=== PATIENT | female | born 1990 | race Caucasian/White ===

== ENCOUNTER → 2020-01-15 14:07 | Outpatient (BNVA) | payer MEDICAID, SELFPAY | PROVIDERS: Family Provider Internal Medicine; PCP Internal Medicine; Visit Provider Obstetrics & Gynecology | DX: Z32.01 Encounter for pregnancy test, result positive (principal) | CPT/HCPCS: 81025 ==

== ENCOUNTER → 2020-01-31 10:09 | Outpatient (BNVA) | payer MEDICAID, SELFPAY | PROVIDERS: Family Provider Internal Medicine; PCP Internal Medicine; Visit Provider Obstetrics & Gynecology | DX: O99.210 Obesity complicating pregnancy, unspecified trimester (principal) | CPT/HCPCS: 80053; 80307; 81000; 82950; 83036; 84443; 85027; 86592; 86762; 86803; 86850; 86900; 87340; 87806 ==

== ENCOUNTER → 2020-02-02 10:14 | Outpatient (BNVA) | payer MEDICAID, SELFPAY | PROVIDERS: Family Provider Internal Medicine; PCP Internal Medicine; Visit Provider Obstetrics & Gynecology | DX: R79.89 Other specified abnormal findings of blood chemistry (principal) | CPT/HCPCS: 84439; 84481 ==

== ENCOUNTER → 2020-02-06 08:34 | Outpatient (BNVA) | payer MEDICAID, SELFPAY | PROVIDERS: Family Provider Internal Medicine; PCP Internal Medicine; Visit Provider Obstetrics & Gynecology | DX: O99.211 Obesity complicating pregnancy, first trimester (principal); R73.09 Other abnormal glucose; O99.011 Anemia complicating pregnancy, first trimester; D64.9 Anemia, unspecified; Z3A.08 8 weeks gestation of pregnancy | CPT/HCPCS: 82607; 82746; 82951; 82952; 83550 ==

== ENCOUNTER → 2020-02-27 08:47 | Outpatient (BNVA) | payer MEDICAID, SELFPAY | PROVIDERS: Family Provider Internal Medicine; PCP Internal Medicine; Visit Provider Obstetrics & Gynecology | DX: R82.90 Unspecified abnormal findings in urine (principal); R10.9 Unspecified abdominal pain | CPT/HCPCS: 80053 ==

== ENCOUNTER → 2020-03-05 08:27 | Outpatient (BNVA) | payer MEDICAID, SELFPAY | PROVIDERS: PCP Internal Medicine; Visit Provider Obstetrics & Gynecology | DX: O09.90 Supervision of high risk pregnancy, unspecified, unspecified trimester (principal) | CPT/HCPCS: 81000; 87491; 87591 ==

== ENCOUNTER 2020-03-11 18:57 | Emergency (ER) | payer MEDICAID, SELFPAY ==
[2020-03-11] VITALS (9 sets, daily range): BP systolic 107–129; BP diastolic 66–83; PULSE 79–110; RESP 16–20; TEMP 36.3; O2SAT 95–100; BMI 38.7
--- NOTE | 2020-03-11 19:31 | US_ITS ---
WS: [id number] TRANSABDOMINAL FIRST TRIMESTER ULTRASOUND REASON FOR EXAM: first trimester bleeding : 4 PARA: 3 COMPARISON: None available. FINDINGS: Ill-defined echogenic material is seen in the uterine cavity and within the endocervical canal. No pelvic mass or free pelvic fluid. US/US OB <= 14 weeks fetus [id number] IMPRESSION: No viable intrauterine identified. No pelvic mass identified. Findings seen within the uterus and endocervical canal likely represent clot. T his may represent missed AB or AB in progress.
[2020-03-11] MEDS: fentaNYL 50 mcg/mL INJ 2mL 100 MCG IVP (19:47)
[2020-03-11] MEDS: ondansetron 2 mg/ML SDV 2 mL 4 MG IVP (19:47)
[2020-03-11 20:17] LABS: INR 0.94 (0.8-1.2); Partial Thromboplastin Time 25.7 SECONDS (23.9-36.7)
[2020-03-11] MEDS: HYDROmorphone 1 mg/mL INJ 1 mL IVP ×2 (20:20→22:17)
[2020-03-11 20:44] LABS: Basophils # 0.1 10^3/uL (0.0-0.1); Basophils % 0.6 %; Eosinophils # 0.2 10^3/uL (0.0-0.8); Eosinophils % 1.9 %; Hematocrit 35.1 % (37.0-47.0); Lymphocytes # 2.1 10^3/uL (0.8-4.8); Lymphocytes % 21.6 %; Mean Corpuscular HGB Conc 28.5 g/dL (30.0-36.0); Mean Corpuscular Hemoglobin 20.6 pg (28.0-34.0); Mean Corpuscular Volume 72.2 fL (81-99); Mean Platelet Volume 10.2 fL (7.4-10.4); Monocytes # 0.4 10^3/uL (0.2-0.9); Monocytes % 4.4 %; Neutrophils # 6.87 10^3/uL (1.8-7.7); Neutrophils % 71.3 %; Nucleated Red Blood Cells % 0 %; Platelet Count 412 10^3/cmm (130-400); Red Blood Count 4.86 10^6/uL (4.1-5.3); Red Cell Distribution Width 20.3 % (12.1-15.1); White Blood Count 9.6 10^3/uL (4.0-10.0)
[2020-03-11 21:17] LABS: Alanine Aminotransferase 14 U/L (0-33); Albumin Level 3.6 g/dL (3.5-5.2); Alkaline Phosphatase 120 IU/L (35-105); Anion Gap 15.3 (5-19); Aspartate Amino Transferase 10 U/L (0-32); Blood Urea Nitrogen 5 mg/dL (6-20); Calcium 8.8 mg/dL (8.5-10.5); Carbon Dioxide 20 mmol/L (22-29); Chloride 106 mmol/L (98-107); Globulin 3.4 g/dL (1.3-4.6); Glomerular Filtration Rate 144.9 mL/min (90-130); Glucose 104 mg/dL (65-115); Osmolality Calculated 284 mOsm/kg (285-295); Potassium 3.3 mmol/L (3.5-5.1); Sodium 138 mmol/L (136-145); Total Bilirubin 0.2 mg/dL (0.15-1.2)
[2020-03-11 22:30] LABS: HCG Qualitative Urine. Positive (Negative)
[2020-03-11 22:37] LABS: Glucose Urine UA Norm (Normal); Ketones Urine 2+ (Negative); Protein Urine 1+ (Negative); Specific Gravity, Urine 1.025 (1.005-1.030); Urine Appearance Cloudy (CLEAR); Urine Color Red (Yellow)
[2020-03-11 22:38] LABS: Add Urine Culture? Yes; Add Urine Microscopic? YES; Bacteria Urine 2+ /hpf; Bilirubin Urine Neg (Negative); Blood Urine 3+ (Negative); Leukocyte Esterase Urine Trace (Negative); Nitrate Urine Negative (Negative); RBC Urine TOO NUMEROUS TO CNT /hpf (0-2); Urobilinogen Urine 1 mg/dL (Negative)
[2020-03-11 22:39] LABS: Amphetamines Screen Urine Negative (Negative); Barbiturates Screen Urine Negative (Negative); Benzodiazepines Screen Urine Negative (Negative); Cocaine Screen Urine Negative (Negative); Opiate Screen Urine Negative (Negative); PCP Screen Urine Negative (Negative); THC Screen Urine Negative (Negative)
[2020-03-11] MEDS: miSOPROStol 200 mcg Tablet 800 MCG SUBLINGUAL (22:48)
--- NOTE | 2020-03-11 23:11 | W.ED.PREGNAN ---
HPI - General: Chief complaint: Vaginal Bleeding Stated complaint: vaginal bleeding 12wks preg. Time Seen by Provider: 03/11/20 19:30 Source: patient Mode of arrival: ambulatory Limitations: other (she is in severe pain) History of Present Illness: HPI Narrative: The patient is a 29-year-old female who is about 12 weeks , she is 4 para 3, and presents to the emergency department with vaginal bleeding and severe abdominal cramping. She states that she has been having the symptoms for a few weeks now but the pain and bleeding increased remarkably at about 3 PM. It is difficult to obtain a complete history from her between the pain and the hysteria that the patient is experiencing. Looking through her chart she has been convinced for a few weeks that she is having an early spontaneous and her primary care provider had performed an ultrasound which showed everything appeared okay with the . She denies any fever, denies any trauma, denies any vaginal discharge. MD Complaint: abdominal pain, vaginal bleeding and contractions Severity scale (1-10): 10 Quality: Cramping Relieving factors: none Exacerbating factors: none Vaginal bleeding: heavy and clots Date of Last Menstrual Period: 12/01/19 Associated symptoms: Reports abdominal pain and vaginal bleeding; Deny dysuria, headache(s), nausea or vomiting Related Data: : 4 Review of Systems General: Reports: 10 or more systems reviewed and unremarkable except in HPI and below Const: Denies: fever(s), chills or body aches Eyes: Denies: change in vision or blurry vision ENMT: Denies: throat pain, enlarged tonsils, odynophagia, hoarseness, mouth pain or swelling of lips/tongue Card: Denies: palpitations, irregular heart rhythm, edema or swelling of feet/ankles Resp: Denies: dyspnea, productive cough or non-productive cough GI: Reports: abdominal pain; Denies: nausea or vomiting : Reports: vaginal bleeding; Denies: flank pain, difficulty voiding, dysuria, urinary frequency, urinary urgency or urinary hesitancy Musc: Denies: neck pain, back pain or extremity swelling Skin/Breast: Denies: rash, pruritus or erythema Neuro: Denies: headache(s), numbness in extremities or weakness in extremities Endo: Denies: polyuria, polydipsia or tired all the time PFSH ED PFSH: Medical History (Reviewed 03/12/20 @ 11:54 by Kristen Lazcano MD, [facility] – [place]) Diabetes mellitus States that she had diabetes diagnosed in 2013 and was on metformin. She states that she lost weight and ate healthier and since about 2016 has not been on any medication. She states that her last hemoglobin A1c was normal however she does not know when this was done. Fibromyalgia Has fibromyalgia but is not on any medication. Migraine Has had migraines since 2013 and follows with a neurologist-Dr. Gamez in [place]. She does have daily headaches but does not take any medication for this. No pertinent past medical history Denies diabetes, asthma, hypertension, seizures, DVT/PE PMD: Dr. Daigle Surgical History (Reviewed 03/12/20 @ 11:54 by Kristen Lazcano MD, [facility] [place]) H/O nose injury (2005) Surgery to reset her nasal septum--Performed in [place], [place] History of appendectomy (2009) laparoscopic procedure Performed in [place] History of section X 3 ---> 2006, 2008, 2010 History of cholecystectomy (2014) laparoscopic procedure, Performed in [place], [place] History of placement of ear tubes At the age of 1--Performed in [place] History of tonsillectomy (1999) Performed in [place] S/P skin cancer resection 14 years old--removed from neck Family History (Reviewed 03/12/20 @ 11:54 by Kristen Lazcano MD, [facility] [place]) Grandfather Hypertension Maternal grandfather Family/Other Diabetes Maternal aunt Breast cancer Maternal aunt, diagnosed in her 40s Denies family history of Colon cancer Ovarian cancer Heart disease Hyperlipidemia Family history of thyroid problem Uterine cancer Stroke Social History (Reviewed 03/12/20 @ 11:54 by Kristen Lazcano MD, [facility] [place]) Additional social history: - Female Reproductive History: Date of last menstrual period: 12/01/19 : 4 Physical Exam Const: COMMON NORMALS: no acute distress, average body habitus, patient oriented x3, no limitations, healthy appearing, alert and well nourished HENMT: COMMON NORMALS: normocephalic, atraumatic and moist oral mucous membranes HEAD & SCALP: normocephalic and atraumatic Eye: COMMON NORMALS: Equal, round and reactive pupils present, EOMs intact bilaterally, conjunctivae normal and no scleral icterus CONJUNCTIVA: Yes conjunctivae normal PUPIL: Yes Equal, round and reactive pupils present Neck/C-Spine: COMMON NORMALS: no meningeal signs and no JVD Resp: COMMON NORMALS: normal respiratory effort, No retractions, No use of accessory muscles, clear to auscultation bilaterally and percussion normal AUSCULTATION: clear to auscultation bilaterally PERCUSSION: percussion normal Cardio: COMMON NORMALS: no JVD, regular rate, regular rhythm, S1 normal heart sound present, S2 normal heart sound present, No gallops present (Cardio), No clicks present (Cardio), No murmurs present (Cardio), No rub (Cardio) and Peripheral pulses 2+ throughout RATE: regular rate RHYTHM: regular rhythm HEART SOUNDS: S1 normal heart sound present and S2 normal heart sound present PERIPHERAL PULSES: Peripheral pulses 2+ throughout GI: COMMON NORMALS: Normal to inspection, nondistended, normoactive bowel sounds present, Soft to palpation, No hepatosplenomegaly present, no masses and no bruits PALPATION: Yes Soft to palpation, Yes Tenderness to palpation present (GI) (marked suprapubic tenderness) and Yes No hepatosplenomegaly present : SPECULUM EXAM - VAGINA: Yes vaginal bleeding and Yes tissue present in vagina SPECULUM EXAM - CERVIX: No Cervical os open, Yes Cervical os closed and Yes Cervical bleeding OB/EXTERNAL & SPECULUM: tissue present in vagina and vaginal bleeding; No Cervical os open Extremity: COMMON NORMALS: normal to inspection, full ROM, capillary refill normal, no calf tenderness and no pedal edema Neuro: COMMON NORMALS: patient oriented x3 SENSORIUM/ORIENTATION: Yes alert MENINGEAL SIGNS: Yes no meningeal signs Skin: COMMON NORMALS: no rashes or lesions noted, no wounds, turgor normal, no jaundice, no petechiae and no mottling GENERAL SKIN EXAM: no rashes or lesions noted and turgor normal Course ED course: 29-year-old female patient who unfortunately came into the emergency department with a spontaneous . The patient eventually passed the fetus while in the emergency department. The team form the labor and delivery department came down and offered grief counseling to the patient and her significant other. The aborted fetus was weighed and sent for pathology. Pain was eventually controlled with multiple doses of intravenous analgesics. The patient was given a dose of Cytotec in the emergency department. She is to follow-up with her mine captain tomorrow for repeat evaluation Reevaluation(s): Reevaluation #1: Discussed the patient with Dr. Renteria who is the mine captain on-call and he advised that since the cervix is closed the patient can be discharged home and he was given some Cytotec in case there are some retained products. Vital Signs: Vital signs: Vital Signs Temperature 97.4 F L 03/11/20 19:14 Pulse Rate 93 03/11/20 23:33 Respiratory Rate 16 03/11/20 23:33 Blood Pressure 128/67 03/11/20 23:33 Pulse Oximetry 99 03/11/20 23:33 MDM - OB/Uterine Contractions MDM Narrative: Medical decision making narrative: Patient who presents to the emergency department in the process of having a spontaneous . The was completed in the emergency department and the fetus was sent for pathology. The patient's pain was controlled. She did not require RhoGam. She is discharged home to follow-up with her mine captain tomorrow. Medical Records: Attestation: I reviewed the patient's medical records. Lab Data: Attestation: I reviewed the patient's lab results. Labs: Lab Results 03/11/20 03/11/20 03/11/20 Range/Units 19:40 19:40 19:40 WBC 9.6 (4.0-10.0) 10^3/ uL RBC 4.86 (4.1-5.3) 10^6/u L Hgb 10.0 L (11.5-15.3) g/dL Hct 35.1 L (37.0-47.0) % MCV 72.2 L (81-99) fL MCH 20.6 L (28.0-34.0) pg MCHC 28.5 L (30.0-36.0) g/dL RDW 20.3 H (12.1-15.1) % Plt Count 412 H (130-400) 10^3/c mm MPV 10.2 (7.4-10.4) fL Neut % (Auto) 71.3 % Lymph % (Auto) 21.6 % [place] % (Auto) 4.4 % Eos % (Auto) 1.9 % Baso % (Auto) 0.6 % Neut # (Auto) 6.87 (1.8-7.7) 10^3/u L Lymph # (Auto) 2.1 (0.8-4.8) 10^3/u L [place] # (Auto) 0.4 (0.2-0.9) 10^3/u L Eos # (Auto) 0.2 (0.0-0.8) 10^3/u L Baso # (Auto) 0.1 (0.0-0.1) 10^3/u L Nucleated RBC % (a uto) 0 % Nucleated RBCs # 0.0 /100WBC PT 12.90 (12.1-14.9) SECO NDS INR 0.94 (0.8-1.2) APTT 25.7 (23.9-36.7) SECO NDS Sodium 138 (136-145) mmol/L Potassium 3.3 L (3.5-5.1) mmol/L Chloride 106 (98-107) mmol/L Carbon Dioxide 20 L (22-29) mmol/L Anion Gap 15.3 (5-19) BUN 5 L (6-20) mg/dL Creatinine 0.5 (0.5-0.9) mg/dL GFR Calculation 144.9 H (90-130) mL/min Glucose 104 (65-115) mg/dL Calculated Osmolal ity 284 L (285-295) mOsm/k g Calcium 8.8 (8.5-10.5) mg/dL Total Bilirubin 0.2 (0.15-1.2) mg/dL AST 10 (0-32) U/L ALT 14 (0-33) U/L Alkaline Phosphata se 120 H (35-105) IU/L Total Protein 7.0 (6.6-8.7) g/dL Albumin 3.6 (3.5-5.2) g/dL Globulin 3.4 (1.3-4.6) g/dL HCG, Qual (Negative) Ser , [place] 20091.00 mIU/mL Urine Color (Yellow) Urine Appearance (CLEAR) Urine pH (5-7) Ur Specific Gravit y (1.005-1.030) Urine Protein (Negative) Urine Glucose (UA) (Normal) Urine Ketones (Negative) Urine Blood (Negative) Urine Nitrate (Negative) Urine Bilirubin (Negative) Urine Urobilinogen (Negative) mg/dL Ur Leukocyte Sherita ase (Negative) Urine RBC (0-2) /hpf Urine WBC (0-5) /hpf Ur Squamous Epith Cells (0-5) /hpf Amorphous Sediment Urine Bacteria (NONE) /hpf Urine Opiates Scre en (Negative) ng/mL Ur Barbiturates Sc reen (Negative) ng/mL Ur Phencyclidine S crn (Negative) ng/mL Ur Amphetamines Sc reen (Negative) ng/mL U Benzodiazepines Scrn (Negative) ng/mL Urine Cocaine Scre en (Negative) ng/mL U Marijuana (THC) Screen (Negative) ng/mL Blood Type Rho(D) Type Antibody Screen 03/11/20 03/11/20 03/11/20 Range/Units 20:25 21:45 21:45 WBC (4.0-10.0) 10^3/ uL RBC (4.1-5.3) 10^6/u L Hgb (11.5-15.3) g/dL Hct (37.0-47.0) % MCV (81-99) fL MCH (28.0-34.0) pg MCHC (30.0-36.0) g/dL RDW (12.1-15.1) % Plt Count (130-400) 10^3/c mm MPV (7.4-10.4) fL Neut % (Auto) % Lymph % (Auto) % [place] % (Auto) % Eos % (Auto) % Baso % (Auto) % Neut # (Auto) (1.8-7.7) 10^3/u L Lymph # (Auto) (0.8-4.8) 10^3/u L [place] # (Auto) (0.2-0.9) 10^3/u L Eos # (Auto) (0.0-0.8) 10^3/u L Baso # (Auto) (0.0-0.1) 10^3/u L Nucleated RBC % (a uto) % Nucleated RBCs # /100WBC PT (12.1-14.9) SECO NDS INR (0.8-1.2) APTT (23.9-36.7) SECO NDS Sodium (136-145) mmol/L Potassium (3.5-5.1) mmol/L Chloride (98-107) mmol/L Carbon Dioxide (22-29) mmol/L Anion Gap (5-19) BUN (6-20) mg/dL Creatinine (0.5-0.9) mg/dL GFR Calculation (90-130) mL/min Glucose (65-115) mg/dL Calculated Osmolal ity (285-295) mOsm/k g Calcium (8.5-10.5) mg/dL Total Bilirubin (0.15-1.2) mg/dL AST (0-32) U/L ALT (0-33) U/L Alkaline Phosphata se (35-105) IU/L Total Protein (6.6-8.7) g/dL Albumin (3.5-5.2) g/dL Globulin (1.3-4.6) g/dL HCG, Qual Positive H (Negative) Ser , [place] i-Qnt mIU/mL Urine Color Red (Yellow) Urine Appearance Cloudy A (CLEAR) Urine pH 5.0 (5-7) Ur Specific Gravit y 1.025 (1.005-1.030) Urine Protein 1+ H (Negative) Urine Glucose (UA) Norm (Normal) Urine Ketones 2+ H (Negative) Urine Blood 3+ H (Negative) Urine Nitrate Negative (Negative) Urine Bilirubin Neg (Negative) Urine Urobilinogen 1 H (Negative) mg/dL Ur Leukocyte Sherita ase Trace H (Negative) Urine RBC Too numerous to c nt H (0-2) /hpf Urine WBC 5-10 H (0-5) /hpf Ur Squamous Epith Cells None (0-5) /hpf Amorphous Sediment Not Reportable Urine Bacteria 2+ H (NONE) /hpf Urine Opiates Scre en (Negative) ng/mL Ur Barbiturates Sc reen (Negative) ng/mL Ur Phencyclidine S crn (Negative) ng/mL Ur Amphetamines Sc reen (Negative) ng/mL U Benzodiazepines Scrn (Negative) ng/mL Urine Cocaine Scre en (Negative) ng/mL U Marijuana (THC) Screen (Negative) ng/mL Blood Type O Positive Rho(D) Type Positive Antibody Screen Negative 03/11/20 Range/Units 21:45 WBC (4.0-10.0) 10^3/ uL RBC (4.1-5.3) 10^6/u L Hgb (11.5-15.3) g/dL Hct (37.0-47.0) % MCV (81-99) fL MCH (28.0-34.0) pg MCHC (30.0-36.0) g/dL RDW (12.1-15.1) % Plt Count (130-400) 10^3/c mm MPV (7.4-10.4) fL Neut % (Auto) % Lymph % (Auto) % [place] % (Auto) % Eos % (Auto) % Baso % (Auto) % Neut # (Auto) (1.8-7.7) 10^3/u L Lymph # (Auto) (0.8-4.8) 10^3/u L [place] # (Auto) (0.2-0.9) 10^3/u L Eos # (Auto) (0.0-0.8) 10^3/u L Baso # (Auto) (0.0-0.1) 10^3/u L Nucleated RBC % (a uto) % Nucleated RBCs # /100WBC PT (12.1-14.9) SECO NDS INR (0.8-1.2) APTT (23.9-36.7) SECO NDS Sodium (136-145) mmol/L Potassium (3.5-5.1) mmol/L Chloride (98-107) mmol/L Carbon Dioxide (22-29) mmol/L Anion Gap (5-19) BUN (6-20) mg/dL Creatinine (0.5-0.9) mg/dL GFR Calculation (90-130) mL/min Glucose (65-115) mg/dL Calculated Osmolal ity (285-295) mOsm/k g Calcium (8.5-10.5) mg/dL Total Bilirubin (0.15-1.2) mg/dL AST (0-32) U/L ALT (0-33) U/L Alkaline Phosphata se (35-105) IU/L Total Protein (6.6-8.7) g/dL Albumin (3.5-5.2) g/dL Globulin (1.3-4.6) g/dL HCG, Qual (Negative) Ser , [place] i-Qnt mIU/mL Urine Color (Yellow) Urine Appearance (CLEAR) Urine pH (5-7) Ur Specific Gravit y (1.005-1.030) Urine Protein (Negative) Urine Glucose (UA) (Normal) Urine Ketones (Negative) Urine Blood (Negative) Urine Nitrate (Negative) Urine Bilirubin (Negative) Urine Urobilinogen (Negative) mg/dL Ur Leukocyte Sherita ase (Negative) Urine RBC (0-2) /hpf Urine WBC (0-5) /hpf Ur Squamous Epith Cells (0-5) /hpf Amorphous Sediment Urine Bacteria (NONE) /hpf Urine Opiates Scre en Negative (Negative) ng/mL Ur Barbiturates Sc reen Negative (Negative) ng/mL Ur Phencyclidine S crn Negative (Negative) ng/mL Ur Amphetamines Sc reen Negative (Negative) ng/mL U Benzodiazepines Scrn Negative (Negative) ng/mL Urine Cocaine Scre en Negative (Negative) ng/mL U Marijuana (THC) Screen Negative (Negative) ng/mL Blood Type Rho(D) Type Antibody Screen Discharge Plan Discharge Patient Disposition: Home Clinical Impression: Spontaneous Condition: Stable Prescriptions: [place] 5-325 mg tablet 1 tab PO Q8H PRN (Reason: pain) Qty: 10 RF: 0 Continued vit-iron fum-folic ac [ Vitamin with Minerals] 28 mg iron- 800 mcg tablet 1 tab PO DAILY RF: 0 Discharge Orders: Discharge Order (Routine); Ordered 03/11/20 Ordered By: Kristen Lazcano Referrals: Michelle Daigle MD [Primary Care Provider] - 1-3 days Discharge Diet: Usual diet Discharge Activity: Increase activity as tolerated Patient Instructions: Spontaneous Miscarriage (ED) Activity Restrictions/Additional Instructions: Return for any new or worsening symptoms. Follow-up with your mine captain tomorrow. If your bleeding gets worse or your pain gets worse please return for further evaluation. Take the pain medication as needed for pain. Coding Level of Care Code ED Shelter Director for Naomie Funes
[2020-03-11] MEDS: HYDROcodone-acetaminophen 5-325 mg Tablet 4 TAB PO (23:21)
== END 2020-03-11 23:35 | disposition home or self-care (01) ==
PROVIDERS: Emergency Provider Family Medicine; PCP Internal Medicine
DX: O03.9 Complete or unspecified spontaneous abortion without complication (principal); O24.111 Pre-existing type 2 diabetes mellitus, in pregnancy, first trimester; E11.9 Type 2 diabetes mellitus without complications; Z3A.12 12 weeks gestation of pregnancy
CPT/HCPCS: 12345; 36415; 76801; 80053; 80306; 81001; 81025; 84702; 85025; 85610; 85730; 86850; 86900; 87086; 88300; 96374; 96375; 96376; 99283; J1170; J2405; J3010

== ENCOUNTER 2020-04-02 13:55 | Outpatient (CLI) | payer MEDICAID, SELFPAY ==
--- NOTE | 2020-04-02 14:07 | XRR_ITS ---
PROCEDURE INFORMATION: Exam: XR Chest, 2 Views Exam date and time: 04/02/2020 2:08 PM Age: 29 years old Clinical indication: Condition or disease; Lung condition and disease; Asthma; Severity not specified; Cough and shortness of breath; Additional info: Dyspnea/other unspecified asthma TECHNIQUE: Imaging protocol: XR of the chest Views: 2 views. COMPARISON: CR Chest 2 views* [id number] 05/29/2016 2:58 PM FINDINGS: Lungs: Unremarkable. No consolidation. Pleural space: Unremarkable. No pleural effusion. No pneumothorax. Heart/Mediastinum: Unremarkable. No cardiomegaly. Bones/joints: Unremarkable. XR/XR chest 2V* [id number] IMPRESSION: No acute findings.
== END 2020-04-02 13:56 | disposition home or self-care (01) ==
PROVIDERS: PCP Internal Medicine; Visit Provider Otolaryngology
DX: J45.909 Unspecified asthma, uncomplicated (principal); R06.00 Dyspnea, unspecified
CPT/HCPCS: 71046

== ENCOUNTER → 2020-04-17 08:17 | Outpatient (BNVA) | payer MEDICAID, SELFPAY | PROVIDERS: PCP Internal Medicine; Visit Provider Obstetrics & Gynecology | DX: O99.019 Anemia complicating pregnancy, unspecified trimester (principal); D47.3 Essential (hemorrhagic) thrombocythemia; O03.9 Complete or unspecified spontaneous abortion without complication | CPT/HCPCS: 85025 ==

== ENCOUNTER → 2020-08-20 10:40 | Outpatient (BNVA) | payer BC, MEDICAID, SELFPAY | PROVIDERS: PCP Internal Medicine; Visit Provider Obstetrics & Gynecology | DX: Z12.4 Encounter for screening for malignant neoplasm of cervix (principal) | CPT/HCPCS: 88175 ==

== ENCOUNTER 2023-05-25 13:12 | Outpatient (CLI) | payer BC, MEDICAID, SELFPAY ==
--- NOTE | 2023-05-25 13:21 | XR_ITS ---
WS: [id number] XR knee LT 3V* [id number] REASON FOR EXAM: L KNEE JOINT PAIN FINDINGS: No fracture or focal bone lesion. Mild narrowing of the medial knee joint space with mild subchondral sclerosis and mild osteophytosis. The lateral knee joint space is intact and relatively well preserved. Mild narrowing of the patellofemoral joint space with mild subchondral sclerosis and osteophytosis of the patella. IMPRESSION: Mild osteoarthritis of the left knee as above.
== END 2023-05-25 13:13 | disposition home or self-care (01) ==
LOC: RAD 13:15
PROVIDERS: PCP Internal Medicine; Visit Provider Family Medicine
DX: M17.12 Unilateral primary osteoarthritis, left knee (principal)
CPT/HCPCS: 73562

== ENCOUNTER 2023-09-21 06:57 | Emergency (ER) | payer BC, MEDICAID, SELFPAY ==
[2023-09-21 07:04] VITALS: BP 156/81; PULSE 80; RESP 18; TEMP 36.8; O2SAT 98; BMI 40.3
--- NOTE | 2023-09-21 07:07 | XRR_ITS ---
PROCEDURE INFORMATION: Exam: XR Right Foot Exam date and time: 09/21/2023 7:38 AM Age: 32 years old Clinical indication: Injury or trauma; Blunt trauma; Foot; Right; Injury details: Tripped pain in RT. 4+5 mt; Additional info: Tripped and pain in 4+5 mt TECHNIQUE: Imaging protocol: Radiologic exam of the right foot. Views: 3 or more views. COMPARISON: CR XR foot RT min 3V* [id number] 04/14/2019 6:56 PM FINDINGS: Bones/joints: Normal. No fracture or dislocation. No arthritic changes. Soft tissues: Normal. XR/XR foot RT min 3V* [id number] IMPRESSION: No acute findings.
--- NOTE | 2023-09-21 07:08 | W.ED.EXTPRO ---
HPI - Extremity Problem General: Chief complaint: Extremity Problem,Nontraumatic Stated complaint: right foot pain Time Seen by Provider: 09/21/23 07:04 Source: patient Mode of arrival: ambulatory Limitations: no limitations History of Present Illness: This lady presents to the emergency room this morning because of right foot pain. She states that she was walking in her home and tripped over a plastic box and she states her fourth and fifth toes current weight 1 direction akimbo from the rest of her foot. She states that her foot felt swollen and quite sore and painful to bear weight initially and has improved some but still quite painful to bear weight and when she tries to move her fourth and fifth toes. She did not fall or suffer any other injury. He has no pain in her ankle lower leg knee etc. Location: right Radiation: none Exacerbating factors: weight bearing and walking Associated symptoms: Deny fever(s) Review of Systems Const: Denies: fever(s) Card: Denies: palpitations, syncope or pre-syncope GI: Denies: nausea or vomiting : Denies: flank pain or difficulty voiding Musc: Denies: neck pain or back pain Neuro: Denies: numbness in extremities or weakness in extremities Elie/Lymph: Denies: easy bruising or easy bleeding PFSH ED PFSH: Medical History Fibromyalgia Has fibromyalgia but is not on any medication. Migraine Has had migraines since 2013 and follows with a neurologist-Dr. Gamez in [place]. She does have daily headaches but does not take any medication for this. Since she has cut out cows milk symptoms are very minimal. Diabetes mellitus States that she had diabetes diagnosed in 2013 and was on metformin. She states that she lost weight and ate healthier and since about 2016 has not been on any medication. She states that her last hemoglobin A1c was normal however she does not know when this was done. No pertinent past medical history Denies diabetes, asthma, hypertension, seizures, DVT/PE PMD: Dr. Daigle Surgical History History of placement of ear tubes At the age of 1--Performed in [facility] [place] History of tonsillectomy (1999) Per[place] [facility] [place] History of appendectomy (2009) [facility] nose [facility] (2005) Surgery to reset her nasal septum--[place] History of cholecystectomy (2014) laparoscopic procedure, Performed in [place] History of section X 3 ---> 2007, 2009, 2010 S/P skin cancer resection 14 years old--removed from neck Family History Grandfather Hypertension Maternal grandfather Family/Other Diabetes Maternal aunt Breast cancer Maternal aunt, diagnosed in her 40s Denies family history of Colon cancer Ovarian cancer Heart disease Hyperlipidemia Family history of thyroid problem Uterine cancer Thyroid disease Stroke Social History Smoking and tobacco/nicotine status: never used tobacco/nicotine Additional social history: - Physical Exam Narrative: EXAM NARRATIVE: She is alert no acute distress makes good eye contact speech is goal-directed. Const: COMMON NORMALS: no acute distress and patient oriented x3 HENMT: COMMON NORMALS: normocephalic HEAD & SCALP: normocephalic Eye: COMMON NORMALS: Equal, round and reactive pupils present PUPIL: Yes Equal, round and reactive pupils present Neck/C-Spine: COMMON NORMALS: full ROM CERVICAL SPINE: Yes cervical ROM normal Resp: COMMON NORMALS: normal respiratory effort EFFORT & INSPECTION: Yes able to speak in complete sentences Cardio: COMMON NORMALS: Peripheral pulses 2+ throughout PERIPHERAL PULSES: Peripheral pulses 2+ throughout Back/Pelvis: COMMON NORMALS: thoraco-lumbar ROM normal Extremity: RIGHT LOWER EXTREMITY: Yes foot & digits Right foot and digits: Yes palpation (Tender over the fourth and fifth metatarsal.) OTHER: Examination with attention to the right lower extremity reveals normal range of motion at the hip knee and ankle. No deformity no tenderness in those regions. Ecchymosis noted over the dorsum of the right foot measuring approximately 3 x 3 cm minimally ecchymotic. Tenderness in the same region. She has some reproduction of symptoms with flexion extension of the fourth and fifth toes. No other foot abnormality or tenderness noted. She has no midfoot tenderness. Neuro: COMMON NORMALS: patient oriented x3, moves all extremities, no focal motor deficits and no sensory deficits noted Course Vital Signs: Vital signs: Vital Signs Temperature 98.2 F 09/21/23 07:04 Pulse Rate 80 09/21/23 07:04 Respiratory Rate 18 09/21/23 07:04 Blood Pressure 156/81 09/21/23 07:04 Pulse Oximetry 98 09/21/23 07:04 Oxygen Delivery Me thod Room Air 09/21/23 07:04 MDM - Extremity (Nontraumatic) Medical Decision Making Patient presented with right foot pain after a near fall injury with injury to the lateral portion of her right foot. Pain with weightbearing in that area but otherwise no other injury. Clinical examination revealed tenderness over the fourth and fifth metatarsals with reproduction of symptoms with movement of toes. Imaging was obtained and interpreted by me prior to radiology interpretation which revealed no evidence of bony fracture. Her injury is consistent with a soft tissue injury and will recommend symptomatic treatment with recheck in 5 to 7 days if pain is not resolving or resolved. Patient voiced understanding. XR interpretation done by ED provider, pending radiology final review (No evidence of acute fracture dislocation etc.) Discharge Plan Discharge Patient Disposition: Home Clinical Impression: Sprain of fourth toe of right foot Qualifiers: Encounter type: initial encounter Qualified Code(s): S93.504A - Unspecified sprain of right lesser toe(s), initial encounter Sprain of fifth toe of right foot Qualifiers: Encounter type: initial encounter Qualified Code(s): S93.504A - Unspecified sprain of right lesser toe(s), initial encounter Condition: Stable Prescriptions: No Action ferrous sulfate [iron] 325 mg (65 mg iron) tablet 325 mg PO DAILY Discharge Orders: Discharge ED (Routine); Ordered 09/21/23 Ordered By: Sid Wren Referrals: Peng Shin MD [Primary Care Provider] - Discharge Diet: Usual diet Discharge Activity: Increase activity as tolerated Patient Instructions: Opioid Safety, Pain Management Activity Restrictions/Additional Instructions: As we discussed there is no evidence of the broken bone or dislocated bone in your foot. Consistent with a sprain of the fourth and fifth toes. You should continue to use [id number] medications ice as needed and increase your activity as tolerated. If you are still continue to have pain or your pain worsens after 5 to 7 days you should return here for reevaluation. Coding Level of Care Code ED Administrative Assistant Coordinator for Naomie Funes
== END 2023-09-21 09:19 | disposition home or self-care (01) ==
PROVIDERS: Emergency Provider Emergency Medicine; PCP Family Medicine
DX: S93.504A Unspecified sprain of right lesser toe(s), initial encounter (principal); E11.9 Type 2 diabetes mellitus without complications; W22.8XXA Striking against or struck by other objects, initial encounter
CPT/HCPCS: 73630; 99283

== ENCOUNTER 2023-11-26 14:26 | Outpatient (CLI) | payer BC, MEDICAID, SELFPAY ==
--- NOTE | 2023-11-26 14:34 | XR_ITS ---
WS: [id number] CHEST 2 VIEWS HISTORY: CHRONIC COUGH; DYSPNEA COMPARISON: 04/02/2020 Lungs: Clear with no abnormality. No pleural effusion or pneumothorax. Cardiac size: Normal. Mediastinum/Aorta: Normal mediastinum. Bones: Normal. Prior cholecystectomy. XR/XR chest 2V* [id number] IMPRESSION: Normal chest.
== END 2023-11-26 14:27 | disposition home or self-care (01) ==
LOC: RAD 14:27
PROVIDERS: PCP Family Medicine; Visit Provider Otolaryngology
DX: R05.3 Chronic cough (principal); R06.00 Dyspnea, unspecified; Z90.49 Acquired absence of other specified parts of digestive tract
CPT/HCPCS: 71046

== ENCOUNTER 2024-05-03 09:17 | Emergency (ER) | payer BC, MEDICAID, SELFPAY ==
--- NOTE | 2024-05-03 09:21 | XRR_ITS ---
PROCEDURE INFORMATION: Exam: XR Chest Exam date and time: 05/03/2024 9:39 AM Age: 33 years old Clinical indication: Cough and dyspnea; Additional info: Dyspnea/cough TECHNIQUE: Imaging protocol: Radiologic exam of the chest. Views: 1 view. COMPARISON: CR XR chest 2V* [id number] 11/26/2023 2:40 PM FINDINGS: Lungs: Unremarkable. No consolidation or mass. Pleural spaces: Unremarkable. No pleural effusion. No pneumothorax. Heart/Mediastinum: Unremarkable. No cardiomegaly. Bones/joints: Unremarkable. XR/XR chest 1V portable [id number] IMPRESSION: No acute findings.
[2024-05-03 09:30] VITALS: BP 147/91; PULSE 82; TEMP 36.4; O2SAT 98
[2024-05-03 10:08] LABS: Bilirubin Urine Negative (Negative); Blood Urine Negative (Negative); Glucose Urine UA Negative (Normal); Ketones Urine Negative (Negative); Leukocyte Esterase Urine Negative (Negative); Nitrate Urine Negative (Negative); Protein Urine Negative (Negative); Urine Appearance Clear (CLEAR); Urine Color Yellow (Yellow); Urobilinogen Urine 0.2 mg/dL (Negative)
--- NOTE | 2024-05-03 10:08 | ECG_ITS ---
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 Measurements Intervals [place] Rate: 78 P: 46 MT: 165 QRS: 38 QRSD: 91 T: 45 QT: 386 QTc: 440 Interpretive Statements SINUS RHYTHM POSSIBLE LEFT ATRIAL ENLARGEMENT [-0.1mV P-WAVE IN V1/V2] LOW QRS VOLTAGE IN PRECORDIAL LEADS [QRS DEFLECTION < 1.0 mV IN CHEST LEADS] Compared to ECG 12/25/2015 08:28:16 Low QRS voltage now present T-wave abnormality no longer present Electronically Signed On 05-04-2024 12:31:06 NEEDLE VALVE OPERATOR by Magdaleno Carrillo M.D. [id number]
[2024-05-03 10:13] LABS: Add Urine Microscopic? YES; Bacteria Urine 1+ /hpf; Hyaline Casts Urine 0-4 /lpf; RBC Urine 0-2 /hpf (0-2); WBC Urine 0-5 /hpf (0-5)
[2024-05-03 10:18] LABS: Basophils # 0.1 10^3/uL (0.0-0.1); Basophils % 0.8 %; Eosinophils # 0.3 10^3/uL (0.0-0.8); Eosinophils % 3.9 %; Hematocrit 34.1 % (36-47); Lymphocytes # 2.9 10^3/uL (0.8-4.8); Lymphocytes % 34.5 %; Mean Corpuscular HGB Conc 28.7 g/dL (30-55); Mean Corpuscular Hemoglobin 20.9 pg (27-33); Mean Corpuscular Volume 72.9 fl (85-98); Mean Platelet Volume 9.1 fL (7.4-10.4); Monocytes # 0.7 10^3/uL (0.2-0.9); Monocytes % 8.7 %; Neutrophils # 4.41 10^3/uL (1.8-7.7); Neutrophils % 51.9 %; Nucleated Red Blood Cells % 0 %; Platelet Count 531 10^3/cmm (157-399); Red Blood Count 4.68 10^6/uL (3.85-5.65); Red Cell Distribution Width 18.4 % (12.1-15.1); White Blood Count 8.51 10^3/uL (3.29-11.43)
[2024-05-03 10:28] LABS: Alanine Aminotransferase 12 U/L (0-33); Albumin Level 3.8 g/dL (3.5-5.2); Alkaline Phosphatase 117 U/L (35-105); Anion Gap 13.9 (5-19); Aspartate Amino Transferase 9 U/L (0-32); Blood Urea Nitrogen 9 mg/dL (6-20); Calcium 8.4 mg/dL (8.5-10.5); Carbon Dioxide 24 mmol/L (22-29); Chloride 106 mmol/L (98-107); Creatinine Clr Calc Pharmacy 168.8107; Globulin 2.8 g/dL (1.3-4.6); Glomerular Filtration Rate 114.4 mL/min (90-130); Glucose 113 mg/dL (65-115); Osmolality Calculated 289 mOsm/kg (285-295); Potassium 3.9 mmol/L (3.5-5.1); Sodium 140 mmol/L (136-145); Total Bilirubin 0.2 mg/dL (0.15-1.2); Total Protein 6.6 g/dL (6.6-8.7)
[2024-05-03 10:30] LABS: Troponin(5th) Baseline < 6 ng/L (0-10)
[2024-05-03 10:34] LABS: Covid PCR NEGATIVE (Negative); Influenza A NEGATIVE (Negative); Influenza B NEGATIVE (Negative); Respiratory Syncytial Virus Ce NEGATIVE (Negative)
--- NOTE | 2024-05-03 11:05 | ED_ITS ---
HPI - Chest Pain 2 General: Chief Complaint: Chest Pain Stated Complaint: chest pain Time Seen by Provider: 05/03/24 09:21 Source: patient Mode of arrival: ambulatory Limitations: no limitations History of Present Illness: 33-year-old female states that she has b een having chest pain off and on over the last 3 days states been a pressure type pain in the center of her chest she had some radiation to both arms she that she had some dyspnea at times. States currently her pain is resolved she denies any worse or improving factors had no nausea or diaphoresis denies any vomiting. No history of any heart disease. Associated symptoms: Deny abdominal pain, dyspnea, fever(s), nausea or vomiting Related Data Home Medications Medication Instructions Recorded Confirmed cetirizine 10 mg tablet 10 mg PO DAILY PRN allergies 05/03/24 05/03/24 Allergies Allergy/AdvReac Type Severity Reaction Status Date / Time No Known Allergies Allergy Verified 05/03/24 09:33 Review of Systems 2 Const: Denies: fever(s), chills, body aches or change in appetite ENMT: Denies: throat pain or dental pain Card: Reports: chest pain Resp: Denies: dyspnea GI: Denies: abdominal pain, nausea, vomiting or diarrhea Musc: Denies: neck pain or back pain Skin/Breast: Denies: rash Neuro: Denies: headache(s) PFSH ED 2 PFSH: Medical History Fibromyalgia Has fibromyalgia but is not on any medication. Migraine Has had migraines since 2013 and follows with a neurologist-Dr. Gamez in [place]. She does have daily headaches but does not take any medication for this. Since she has cut out cows milk symptoms are very minimal. Diabetes mellitus States that she had diabetes diagnosed in 2013 and was on metformin. She states that she lost weight and ate healthier and since about 2016 has not been on any medication. She states that her last hemoglobin A1c was normal however she does not know when this was done. No pertinent past medical history Denies diabetes, asthma, hypertension, seizures, DVT/PE PMD: Dr. Daigle Surgical History History of placement of ear tubes At the age of 1--Performed in [place], [place] History of tonsillectomy (1999) Performed in [place] History of appendectomy (2009) laparoscopic procedure Performed [place] H/O nose injury (2005) Surgery to reset her nasal septum--Performed in [facility] [place] History of cholecystectomy (2014) laparoscopic procedure, Performed in [place], [place] History of section X 3 ---> 2007, 2009, 2010 S/P skin cancer resection 14 years old--removed from neck Family History Grandfather Hypertension Maternal grandfather Family/Other Diabetes Maternal aunt Breast cancer Maternal aunt, diagnosed in her 40s Denies family history of Colon cancer Ovarian cancer Heart disease Hyperlipidemia Family history of thyroid problem Uterine cancer Thyroid disease Stroke Social History Smoking and tobacco/nicotine status: never used tobacco/nicotine Additional social history: - Physical Exam 2 Const: COMMON NORMALS: no acute distress, patient oriented x3 and healthy appearing HENMT: COMMON NORMALS: normocephalic and atraumatic HEAD & SCALP: n ormocephalic and atraumatic Eye: COMMON NORMALS: Equal, round and reactive pupils present and EOMs intact bilaterally PUPIL: Yes Equal, round and reactive pupils present Neck/C-Spine: COMMON NORMALS: full ROM and supple Chest: COMMONS NORMALS: normal inspection of the chest and normal palpation of entire chest wall Resp: COMMON NORMALS: normal respiratory effort, No retractions, No use of accessory muscles and clear to auscultation bilaterally AUSCULTATION: clear to auscultation bilaterally Cardio: COMMON NORMALS: regular rate, regular rhythm and No murmurs present (Cardio) RATE: regular rate RHYTHM: regular rhythm GI: COMMON NORMALS: Normal to inspection, nondistended, normoactive bowel sounds present, Soft to palpation, non-tender and no masses PALPATION: Yes Soft to palpation Extremity: COMMON NORMALS: normal to inspection and full ROM Neuro: COMMON NORMALS: patient oriented x3, moves all extremities and no focal motor deficits Psych: COMMON NORMALS: mental status grossly normal, Normal thought process present and cooperative THOUGHT PROCESS: Normal thought process present Skin: COMMON NORMALS: no rashes or lesions noted and no wounds GENERAL SKIN EXAM: no rashes or lesions noted Course 2 Vital Signs: Vital signs: Vital Signs Temperature 97.6 F 05/03/24 09:30 Pulse Rate 80 05/03/24 13:30 Respiratory Rate 16 05/03/24 13:30 Blood Pressure 121/95 05/03/24 12:57 Pulse Oximetry 100 05/03/24 13:30 Oxygen Delivery Me thod Room Air 05/03/24 11:57 MDM - Chest Pain Medical Decision Making Patient presents for chest pain that is atypical in nature troponins are normal CT shows no acute finding she is stable for discharge she is follow-up PCP return if worsening she understands agrees to plan Medical Records I reviewed the patient's medical records. Lab Data I reviewed the patient's lab results. 05/03/24 10:00 05/03/24 10:00 Radiology Impressions Chest X-Ray 05/03/24 09:21 IMPRESSION: No acute findings. Chest CTA 05/03/24 11:43 IMPRESSION: No acute findings. Laboratory Results WBC 8.51 10^3/uL (3.29-11.43) 05/03/24 10:00 RBC 4.68 10^6/uL (3.85-5.65) 05/03/24 10:00 Hgb 9.80 g/dL (11.27-16.99) L 05/03/24 10:00 Hct 34.1 % (36-47) L 05/03/24 10:00 MCV 72.9 fl (85-98) L 05/03/24 10:00 MCH 20.9 pg (27-33) L 05/03/24 10:00 MCHC 28.7 g/dL (30-55) L 05/03/24 10:00 RDW 18.4 % (12.1-15.1) H 05/03/24 10:00 Plt Count 531 10^3/cmm (157-399) H 05/03/24 10:00 MPV 9.1 fL (7.4-10.4) 05/03/24 10:00 Neut % (Auto) 51.9 % 05/03/24 10:00 Lymph % (Auto) 34.5 % 05/03/24 10:00 [place] % (Auto) 8.7 % 05/03/24 10:00 Eos % (Auto) 3.9 % 05/03/24 10:00 Baso % (Auto) 0.8 % 05/03/24 10:00 Neut # (Auto) 4.41 10^3/uL (1.8-7.7) 05/03/24 10:00 Lymph # (Auto) 2.9 10^3/uL (0.8-4.8) 05/03/24 10:00 [place] # (Auto) 0.7 10^3/uL (0.2-0.9) 05/03/24 10:00 Eos # (Auto) 0.3 10^3/uL (0.0-0.8) 05/03/24 10:00 Baso # (Auto) 0.1 10^3/uL (0.0-0.1) 05/03/24 10:00 Nucleated RBC % (auto) 0 % 05/03/24 10:00 Nucleated RBCs # 0.0 /100WBC 05/03/24 10:00 D-Dimer 0.68 ug/mLFEU (0-0.59) H 05/03/24 10:00 Sodium 140 mmol/L (136-145) 05/03/24 10:00 Potassium 3.9 mmol/L (3.5-5.1) 05/03/24 10:00 Chloride 106 mmol/L (98-107) 05/03/24 10:00 Carbon Dioxide 24 mmol/L (22-29) 05/03/24 10:00 Anion Gap 13.9 (5-19) 05/03/24 10:00 BUN 9 mg/dL (6-20) 05/03/24 10:00 Creatinine 0.6 mg/dL (0.5-0.9) 05/03/24 10:00 GFR Calculation 114.4 mL/min (90-130) 05/03/24 10:00 Glucose 113 mg/dL (65-115) 05/03/24 10:00 Calculated Osmolality 289 mOsm/kg (285-295) 05/03/24 10:00 Calcium 8.4 mg/dL (8.5-10.5) L 05/03/24 10:00 Total Bilirubin 0.2 mg/dL (0.15-1.2) 05/03/24 10:00 AST 9 U/L (0-32) 05/03/24 10:00 ALT 12 U/L (0-33) 05/03/24 10:00 Alkaline Phosphatase 117 U/L (35-105) H 05/03/24 10:00 Troponin T Baseline < 6 ng/L (0-10) 05/03/24 10:00 Troponin T 120 Minute 6.00 ng/L (0-10) 05/03/24 12:16 Delta Troponin T 0.16292 ABS# (0-10) 05/03/24 12:16 Total Protein 6.6 g/dL (6.6-8.7) 05/03/24 10:00 Albumin 3.8 g/dL (3.5-5.2) 05/03/24 10:00 Globulin 2.8 g/dL (1.3-4.6) 05/03/24 10:00 Urine Color Yellow (Yellow) 05/03/24 09:35 Urine Appearance Clear (CLEAR) 05/03/24 09:35 Urine pH 7.0 (5-7) 05/03/24 09:35 Ur Specific [place] 1.020 (1.005-1.030) 05/03/24 09:35 Urine Protein Negative (Negative) 05/03/24 09:35 Urine Glucose (UA) Negative (Normal) 05/03/24 09:35 Urine Ketones Negative (Negative) 05/03/24 09:35 Urine Blood Negative (Negative) 05/03/24 09:35 Urine Nitrate Negative (Negative) 05/03/24 09:35 Urine Bilirubin Negative (Negative) 05/03/24 09:35 Urine Urobilinogen 0.2 mg/dL (Negative) 05/03/24 09:35 Ur Leukocyte Esterase Negative (Negative) 05/03/24 09:35 Urine RBC 0-2 /hpf (0-2) 05/03/24 09:35 Urine WBC 0-5 /hpf (0-5) 05/03/24 09:35 Ur Squamous Epith Cells 6-10 /hpf (0-5) 05/03/24 09:35 Amorphous Sediment Not Reportable 05/03/24 09:35 Urine Bacteria 1+ /hpf (NONE) H 05/03/24 09:35 Hyaline Casts 0-4 /lpf H 05/03/24 09:35 Coronavirus (PCR) Negative (Negative) 05/03/24 09:35 Influenza A (PCR) Negative (Negative) 05/03/24 09:35 Influenza Type B (PCR) Negative (Negative) 05/03/24 09:35 RSV (PCR) Negative (Negative) 05/03/24 09:35 All radiology interpretation(s) finalized by discharge Clincial Decision Support The following clinical decision support tools were used to aid in care of the patient HEART Score -> History: Slightly Suspicous, EKG: Normal, Age: Less than 45 yrs, Risk Factors: No Risk Factors Known, Troponin: Baseline Trop <16 ng/L. Resulting HEART Score: 0. Discharge Plan Discharge Patient Disposition: Home Clinical Impression: Chest pain Condition: Stable Prescriptions: No Action cetirizine 10 mg tablet 10 mg PO DAILY PRN (Reason: allergies) Discharge Orders: Discharge ED (Routine); Ordered 05/03/24 Ordered By: Stevan Coronado Referrals: Peng Shin MD [Primary Care Provider] - 4-7 days Discharge Diet: Advance as tolerated Discharge Activity: Resume usual activity Patient Instructions: Chest Pain (ED) Coding Level of Care Code ED Manager Cancer for Naomie Funes
[2024-05-03 11:11] VITALS: BP 122/76; PULSE 85; RESP 16; O2SAT 99
[2024-05-03 11:38] LABS: D Dimer 0.68 ug/mLFEU (0-0.59)
--- NOTE | 2024-05-03 11:43 | CTR_ITS ---
PROCEDURE INFORMATION: Exam: CTA Chest With Contrast Exam date and time: 05/03/2024 1:05 PM Age: 33 years old Clinical indication: Chest wall pain; Additional info: Cp TECHNIQUE: Imaging protocol: Computed tomographic angiography of the chest with contrast. Exam focused on the arteries. 3D rendering (Not supervised by radiologist): MIP and/or 3D reconstructed images were created by the technologist. Radiation optimization: All CT scans at this facility use at least one of these dose optimization techniques: automated exposure control; mA and/or kV adjustment per patient size (includes targeted exams where dose is matched to clinical indication); or iterative reconstruction. Contrast material: OMNIPAQUE 350; Contrast volume: 75 ml; Contrast route: INTRAVENOUS (IV); COMPARISON: CR (CHEST, ) 05/03/2024 9:39 AM RADIATION DOSE METRICS: Total DLP (mGy-cm): 482.27 FINDINGS: Pulmonary arteries: Normal. No pulmonary emboli. Aorta: Unremarkable. No aortic aneurysm. No aortic dissection. Lungs: Unremarkable. No consolidation. No masses. Pleural spaces: Unremarkable. No pneumothorax. No pleural effusion. Heart: Unremarkable. No cardiomegaly. No pericardial effusion. Lymph nodes: Unremarkable. No enlarged lymph nodes. Bones/joints: Unremarkable. No acute fracture. Soft tissues: Unremarkable. CT/CT angio chest PE protcl [id number] IMPRESSION: No acute findings.
[2024-05-03 11:57] VITALS: BP 131/82; PULSE 80; RESP 16; O2SAT 100
[2024-05-03 12:47] LABS: Troponin 5 2HR Delta 0.00001 ABS# (0-10)
[2024-05-03 12:57] VITALS: BP 121/95; PULSE 73; O2SAT 96
[2024-05-03] MEDS: iohexol 350 mg/mL 500 mL Btl (per mL) IV (13:17)
[2024-05-03 13:30] VITALS: PULSE 80; RESP 16; O2SAT 100
[2024-05-03 14:23] VITALS: BP 126/90; PULSE 78; RESP 16; O2SAT 100
== END 2024-05-03 14:21 | disposition home or self-care (01) ==
PROVIDERS: Family Medicine; Emergency Provider Emergency Medicine; PCP Family Medicine
DX: R07.9 Chest pain, unspecified (principal); Z11.52 Encounter for screening for COVID-19; E11.9 Type 2 diabetes mellitus without complications
CPT/HCPCS: 71045; 71275; 80053; 81001; 84484; 85025; 85378; 87637; 93005; 93010; 99285

== ENCOUNTER 2024-08-23 07:42 | Emergency (ER) | payer BC, MEDICAID, SELFPAY ==
[2024-08-23 07:50] VITALS: BP 137/78; PULSE 88; RESP 18; TEMP 36.4; O2SAT 100; BMI 37.1
[2024-08-23 07:53] VITALS: BP 116/69; BP 131/68; BP 142/78; PULSE 71; PULSE 72; PULSE 86
--- NOTE | 2024-08-23 07:53 | ECG_ITS ---
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 Measurements Intervals [place] Rate: 72 P: 46 [place]: 173 QRS: 38 QRSD: 101 T: 39 QT: 398 QTc: 436 Interpretive Statements SINUS RHYTHM WITH SINUS ARRHYTHMIA Compared to ECG 05/03/2024 09:25:57 No significant changes Electronically Signed On 08-23-2024 08:30:23 CDT by Rubén Guzman M.D. [email or web address]
[2024-08-23 08:00] LABS: Glucose Point of Care 100 mg/dL (70-110)
--- NOTE | 2024-08-23 08:20 | ED_ITS ---
HPI - Syncope General: Chief Complaint: Syncope Stated Complaint: passed out, dizzy, confusion Time Seen by Provider: 08/23/24 07:48 History of Present Illness: 33-year-old female reports she woke up a t about 5:30 AM. She did not get out of bed at that time. She eventually helped her kids get around and ready for school. After her kids got on the bus she went to lay back down in her recliner. Patient reports she was almost asleep and she heard her neighbor outside. She stood up and yelled on and stretched and then reports she almost lost consciousness. She felt lightheaded and states that she was in the in between state between sleep and wakefulness. She does not think she lost consciousness completely. She did not suffer any injuries. This was brief and transient. She called her who was at work. She is feeling back to baseline now but they wanted her to be checked out to make sure everything was okay. Patient reports she had not had anything to eat or drink this morning. She does not typically have problems with hyperglycemia or hypoglycemia. No history of seizures. She does not endorse any neurologic symptoms. There is no chest pain or palpitations. No diaphoresis. No anxiety. Associated symptoms: Deny abdominal pain, chest pain, fever(s), headache(s) or nausea Related Data Home Medications ?Medication ?Instructions ?Recorded ?Confirmed cetirizine 10 mg tablet 10 mg PO DAILY PRN allergies 05/03/24 05/03/24 Allergies Allergy/AdvReac Type Severity Reaction Status Date / Time No Known Allergies Allergy Verified 05/03/24 09:33 Review of Systems General: Reports: 10 or more systems reviewed and unremarkable except in HPI and below Const: Denies: fever(s), chills or body aches Eyes: Denies: change in vision ENMT: Denies: throat pain Card: Denies: chest pain or edema Resp: Denies: dyspnea or productive cough GI: Denies: abdominal pain, nausea, vomiting or diarrhea : Denies: flank pain, dysuria or urinary frequency Musc: Denies: neck pain, back pain, extremity pain or extremity swelling Skin/Breast: Denies: rash or erythema Neuro: Denies: headache(s), numbness in extremities, weakness in extremities, lack of coordination or difficulty walking [facility] ED PFSH: Medical History Fibromyalgia Has fibromyalgia but is not on any medication. Migraine Has had migraines since 2013 and follows with a neurologist-Dr. Gamez in [place]. She does have daily headaches but does not take any medication for this. Since she has cut out cows milk symptoms are very minimal. Diabetes mellitus States that she had diabetes diagnosed in 2013 and was on metformin. She states that she lost weight and ate healthier and since about 2015 has not been on any medication. She states that her last hemoglobin A1c was normal however she does not know when this was done. No pertinent past medical history Denies diabetes, asthma, hypertension, seizures, DVT/PE PMD: Dr. Daigle Surgical History History of placement of ear tubes At the age of 1--Performed in [place], [place] History of tonsillectomy (1999) Performed in [place] History of appendectomy (2009) laparoscopic procedure Performed in [place] H/O nose injury (2005) Surgery to reset her nasal septum--Performed in [place] History of cholecystectomy (2014) laparoscopic procedure, Performed in [place], [place] History of section X 3 ---> 2006, 2009, 2010 S/P skin cancer resection 14 years old--removed from neck Family History Grandfather Hypertension Maternal grandfather Family/Other Diabetes Maternal aunt Breast cancer Maternal aunt, diagnosed in her 40s Denies family history of Colon cancer Ovarian cancer Heart disease Hyperlipidemia Family history of thyroid problem Uterine cancer Thyroid disease Stroke Social History Smoking and tobacco/nicotine status: never used tobacco/nicotine Additional social history: - Physical Exam Narrative: EXAM NARRATIVE: Well-appearing, nontoxic, GCS 15, no neurofindings. Cardiopulmonary exams normal. Pupils equal round and reactive to light. No meningeal signs. Const: COMMON NORMALS: no limitations, alert and well nourished EXAM LIMITATIONS: no altered mental status HENMT: COMMON NORMALS: normocephalic, atraumatic and external ears normal HEAD & SCALP: normocephalic and atraumatic EXTERNAL EAR: Yes external ears normal MOUTH: no muffled voice Eye: COMMON NORMALS: EOMs intact bilaterally, conjunctivae normal and no scleral icterus CONJUNCTIVA: Yes conjunctivae normal Neck/C-Spine: COMMON NORMALS: no JVD GENERAL: Yes normal visual inspection and Yes trachea midline Resp: COMMON NORMALS: normal respiratory effort, No use of accessory muscles and clear to auscultation bilaterally AUSCULTATION: clear to auscultation bilaterally Cardio: COMMON NORMALS: no JVD, regular rate and regular rhythm RATE: regular rate RHYTHM: regular rhythm GI: COMMON NORMALS: Soft to palpation and non-tender PALPATION: Yes Soft to palpation and No Guarding due to palpation present (GI) Extremity: COMMON NORMALS: normal to inspection Neuro: COMMON NORMALS: moves all extremities, no focal motor deficits and no sensory deficits noted SENSORIUM/ORIENTATION: Yes alert SPEECH: speech normal Psych: COMMON NORMALS: mental status grossly normal, Normal thought process present, cooperative, normal affect and speech normal SPEECH: Yes normal speech THOUGHT PROCESS: Normal thought process present Skin: COMMON NORMALS: no rashes or lesions noted, turgor normal and no jaundice GENERAL SKIN EXAM: no rashes or lesions noted and turgor normal Course Vital Signs: Vital signs: Vital Signs Temperature 97.6 F 08/23/24 07:50 Pulse Rate 88 08/23/24 07:50 Respiratory Rate 18 08/23/24 07:50 Blood Pressure 137/78 08/23/24 07:50 Pulse Oximetry 100 08/23/24 07:50 Oxygen Delivery Me thod Room Air 08/23/24 07:50 MDM - Syncope Medical Decision Making Patient was half asleep. She stood up and yellowed and stretched. She got weak and felt lightheaded and nearly lost consciousness. This was transient and did not recur. There were no associated symptoms along with it. No GI bleeding. No seizures. No neurologic symptoms. No signs of thromboembolic disease on exam. No history of DVT or PE. Cardiopulmonary exam normal. No cardiac symptoms. She says she felt like she was in between sleeping and waking. Blood sugar 100 mg/dL EP interpretation : EKG obtained at 8:01 AM. Sinus rhythm with sinus arrhythmia, rate 72, normal axis, normal intervals, no concerning ST segment elevations or depressions, no concerning electrical findings. Patient reassessed and remains asymptomatic. I do not think any further workup or treatment is necessary. Patient can be discharged with return precautions. Lab Data Laboratory Results POC Glucose 100 mg/dL (70-110) 08/23/24 07:58 No radiology studies performed this visit Discharge Plan Discharge Patient Disposition: Home Clinical Impression: Postural dizziness with near syncope Condition: Stable Prescriptions: No Action cetirizine 10 mg tablet 10 mg PO DAILY PRN (Reason: allergies) Discharge Orders: Discharge ED (Routine); Ordered 08/23/24 Ordered By: Severo Tovar Referrals: Peng Shin MD [Primary Care Provider] - Discharge Activity: Increase activity as tolerated Patient Instructions: Pain Management, Syncope (ED) Activity Restrictions/Additional Instructions: Near Syncope Discharge Instructions Discharge Instructions for Near Syncope 1. Recognize Symptoms: Near syncope, or presyncope, includes symptoms such as pallor, sweating, lightheadedness, visual changes, and weakness. These symptoms often precede a fainting episode and can be of vasovagal or orthostatic origin.[1] https://pubmed.ncbi.nlm.nih.gov/10399508 2. Immediate Actions: - Safe Position: If you experience presyncope symptoms, immediately sit or lie down to prevent falls and injuries.[1] https://pubmed.ncbi.nlm.nih.gov/71180361 - Physical Counter-Pressure Maneuvers (PCMs): Perform maneuvers such as leg cr ossing, limb contraction, or squatting to increase blood pressure and alleviate symptoms. Lower-body PCMs are preferable.[1] https://pubmed.ncbi.nlm.nih.gov/48381872 [2] https://pubmed.ncbi .nlm.nih.gov/79405597 3. When to Seek Help: - If symptoms do not improve within 1-2 minutes or worsen, seek additional help or call emergency services.[1] https://pubmed.ncbi.nlm.nih.gov/95062896 - Do not perform PCMs if you experience symptoms of a heart attack or stroke alongside presyncope.[1] https://pubmed.ncbi.nlm.nih.gov/79933484 4. Education and Prevention: - Avoid Triggers: Learn to recognize and avoid triggers such as prolonged standing, warm environments, and stressful situations.[2] https://pubmed.ncbi.nlm.nih.gov/10461243 - Fluid and Salt Intake: Increase dietary salt and fluid intake to help prevent future episodes.[3] https://pubmed.ncbi.nlm.nih.gov/31937973 5. Follow-Up Care: - Schedule a follow-up appointment with your healthcare provider to discuss your symptoms and any necessary further evaluation or treatment.[2] https://pubmed.ncbi.nlm.nih.gov/73605479 6. Driving Restrictions: - Avoid driving for at least one month after an episode of near syncope to ensure safety.[4] https://pubmed.ncbi.nlm.nih.gov/12643391 7. Additional Recommendations: - If you have recurrent episodes, discuss with your healthcare provider the possibility of using medications such as midodrine or fludrocortisone.[2] https://pubmed.ncbi.nlm.nih.gov/14580308 [3] https://pubmed.n i.nlm.nih.gov/97017926 Safety Note: Always prioritize safety by lying down if symptoms persist or worsen, and seek medical help if necessary.[1] https://pubmed.ncbi.nlm.nih.gov/39002566 [2] https://pubmed.ncbi.nlm.nih.gov/23201993 Print Language: Kyrgyz Coding Level of Care Code ED Building [employer] Estimator for Naomie Funes
[2024-08-23 08:44] VITALS: BP 123/48; PULSE 80; O2SAT 97
== END 2024-08-23 08:45 | disposition home or self-care (01) ==
PROVIDERS: Emergency Provider Emergency Medicine; PCP Family Medicine
DX: R55 Syncope and collapse (principal); R42 Dizziness and giddiness; E11.9 Type 2 diabetes mellitus without complications
CPT/HCPCS: 36416; 82962; 93005; 99284